=== PATIENT | female | born 1975 | race Hispanic/Latino ===

== ENCOUNTER 2017-03-22 22:06 | Emergency (ER) | payer MEDICARE, MEDICAID ==
[~2017-03-22] VITALS: Ht 172.7 cm; Wt 98.9 kg
[2017-03-22 22:29] VITALS: BP 119/80; PULSE 73; O2SAT 100
[2017-03-22 23:29] LABS: BASOPHILS % (AUTO) 0.4 % (0-3); EOSINOPHILS % (AUTO) 7.7 % (0-5); MONOCYTES % (AUTO) 8.2 % (4-12); Mean Corpuscular Hemoglobin 27.5 pg (27.0-35.0); NEUTROPHILS % (AUTO) 47.7 % (40-74); Platelet Count 338 bil/L (150-400)
[2017-03-22 23:52] LABS: Magnesium 2.1 mg/dL (1.6-2.6)
--- NOTE | 2017-03-23 00:45 | ED.REPORT ---
HPI-Abd Pain F 40 and Over Date of Service Mar 23, 2017 ED Provider: Anup Fonseca MD Pt is a 42 year old female with a hx of DM status post gastric bypass 1 month ago presenting to the ED complaining of abdominal pain radiating to her back onset 4 days ago. Associated symptoms include vomiting, streaking in emesis ( onset this morning), headache, and fatigue. Symptoms are exacerbated by eating. Denies fever, chills, SOB, wheezing. Nursing Notes Stated Complaint: STOMACH PAIN & VOMITING X4 DAYS,POST SURGERY Chief Complaint: Female Abdominal Pain Nursing Notes Reviewed: Yes Allergies: Coded Allergies: hydrocodone (Verified Adverse Reaction, Intermediate, Rash,Itching,, ) morphine (Verified Adverse Reaction, Intermediate, Hallucinations, 03/22/17 ) Scheduled PRN oxyCODONE (oxyCODONE) 5 Mg Tablet 5 MG PO Q4H PRN PRN For Pain General Time Seen by MD: 00:19 Chief Complaint Abdominal pain Hx Obtained From: Patient Arrived By: Walk-in Sudden in Onset?: No Onset Occurred: 4 days ago Symptom Duration: Since onset Quality: Painful Severity: Current: Severe Severity: Maximum: Severe Recent Healthcare: No recent doctor visit, No recent hospitalization, Previous surgery Similar Sx Previous: No Past Medical History Past Medical History Reports: Diabetes mellitus Past Surgical History Gastric bypass surgery January 2017 Smoking History Unknown if Ever Smoker Ambulatory Status Independent Review of Systems Constitutional: Reports: Fatigue, Denies: Chills, Fever Respiratory: Denies: Shortness of breath, Wheezing GI: Reports: Abdominal pain, Hematemesis, Nausea, Vomiting Musculoskeletal: Reports: Back pain Complete sys rev & neg: except as marked. Neurologic: Reports: Headache Physical Exam Vital Signs Vital Signs (First) Date Time Temp Pulse Resp B/P Pulse Ox O2 Delivery O2 Flow Rate FiO2 03/22/17 22:29 36.9 73 119/80 100 Room Air 03/23/17 05:12 16 Initial VS: Reviewed, Vital signs normal Head / Eyes: Atraumatic, Normocephalic, PERRL ENT: Mucous membranes moist, Conjunctiva normal, No scleral icterus Extremities: Vascular intact, Neuro intact, No swelling, No tenderness Skin: Warm, Dry, No cyanosis Neurologic: Alert, Oriented, Nonfocal Psychiatric: Mood/affect normal, Behavior normal, Normal thought content General/Constitutional: Awake Distress / Hydration: Positive: Distress moderate Lips dry, appears dehydrated Respiratory / Chest: Breath sounds NL, Breath sounds = bilat, No respiratory distress, No rales, No rhonchi, No wheezing, No stridor Cardiovascular: Heart rate NL, Regular rhythm, Heart sounds NL, Peripheral circulation NL Abdomen: Atraumatic Tender upper abdomen Interpretation & Diagnostics Lab Results Interpretation Result Diagram: 03/22/17 2322 03/22/17 2322 Test 03/22/17 23:22 03/23/17 01:18 White Blood Count 8.2th/mm3 (3.8-10.1) Red Blood Count 4.72mil/mm3 (3.90-5.20) Hemoglobin 13.0g/dL (12.0-15.6) Hematocrit 40.1% (35.0-46.0) Mean Corpuscular Volume 85.0fL (81-100) Mean Corpuscular Hemoglobin 27.5pg (27.0-35.0) Mean Corpuscular Hemoglobin Concent 32.4% (32.0-37.0) Red Cell Distribution Width 14.1% (12.3-15.4) Platelet Count 338bil/L (150-400) Neutrophils (%) (Auto) 47.7% (40-74) Lymphocytes (%) (Auto) 35.9% (14-46) Monocytes (%) (Auto) 8.2% (4-12) Eosinophils (%) (Auto) 7.7% (0-5) Basophils (%) (Auto) 0.4% (0-3) Sodium Level 142mEq/L (134-144) Potassium Level 3.7mEq/L (3.5-5.2) Chloride Level 104mEq/L (97-108) Carbon Dioxide Level 24mmol/L (18-29) Blood Urea Nitrogen 14mg/dL (6-24) Creatinine 0.63mg/dL (0.57-1.00) Estimat Glomerular Filtration Rate 148mL/min (>59) Glucose Level 127mg/dL (60-99) Calcium Level 9.9mg/dL (8.5-10.1) Magnesium Level 2.1mg/dL (1.6-2.6) Total Bilirubin 0.5mg/dL (0.0-1.2) Aspartate Amino Transf (AST/SGOT) 49U/L (0-50) Alanine Aminotransferase (ALT/SGPT) 72U/L (0-32) Alkaline Phosphatase 101U/L (25-150) Total Protein 7.9g/dL (6.4-8.4) Albumin 4.7g/dL (3.4-5.0) Lipase 38U/L (13-60) Hold Lafleur Top Tube Received (Received) Hold Urine Received (Received) Lab values outside NL range: no clinical significance. CT Abd / Pelvis Interpretation CONCLUSION: Fatty liver. Status post appendectomy. Status post gastric bypass surgery. This report was transmitted to the emergency room at 03/23/2017 - 2:59:50 AM PDT. Study type: Abdominal CT IV contrast Interpretation / Wet Read by: Interpret - Radiologist Re-Eval/Medical Decision Med Decision/Clinical Course 42-year-old female who has vomiting and pain with eating one month after gastric bypass. Labs are normal. CT scan of the abdomen with IV and oral contrast is normal. The case was discussed with , on-call surgeon for Dr. Tam. He stated that strictures are common at about this time. They would like to see her in clinic for endoscopy in the next couple of days. Clear liquids. Oxycodone 5 mg every 4 hours as needed for severe pain, #10 prescription written. She has Zofran at home. Re-Evaluation/Progress : Time of Eval: 04:14 Patient Status: Condition improved Re-Evaluation/Progress Note: Informed of CT results. She first noticed the vomiting and pain, then the bleeding. Consultation : Consulted With: Surgeon Call Returned at: 04:27 Note: Consultation with Dr. Mcneil, bariatric surgeon from [facility]. Sometimes people get a stricture 3 or 4 weeks after the bypass surgery which can sometimes be visualized on a CT and sometimes cannot. Discussed plan for discharge and follow up in the clinic for an endoscopy. Counseled Regarding: Diagnosis, Lab results, Need for follow-up, When/why to return to ED Discharge & Departure Primary Impression: Vomiting Vomiting type: unspecified Vomiting Intractability: non-intractable Nausea presence: with nausea Qualified Code: R11.2 - Nausea with vomiting, unspecified Additional Impression: Status post gastric bypass for obesity Disposition: Home Discharge Condition All VS Reviewed: Yes Condition: Improved Patient Instructions: Acute Nausea and Vomiting (ED) Additional Instructions: Clear liquids only. Oxycodone 5 mg every 4-6 hours as needed for pain, #10 prescription written. Zofran as needed. Follow-up in the next day or 2 at the clinic for possible endoscopy to further delineate this problem. Referrals: OTHER,PHYSICIAN (PCP) Scribe Attestation Portions of this note were transcribed by Lubna Loredo. I, Dr. Fonseca personally performed the history, physical exam and medical decision-making; I reviewed and confirmed the accuracy of the information in the transcribed note. Signed by: Iraj Vang, 03/23/2017. Anup Fonseca MD Mar 23, 2017 00:45 LUBNA LOREDO Mar 23, 2017 00:55
[2017-03-23] MEDS ORDERED: 0.9% Sodium Chloride 1,000 ML IV ONE (00:46)
[2017-03-23] MEDS ORDERED: Iohexol 300 mg/mL 30 mL Inj PO ONE (00:50)
[2017-03-23] MEDS ORDERED: Ondansetron 2 mg/mL 2 mL Inj IVPUSH PRN (00:50)
[2017-03-23] MEDS: HYDROmorphone 0.5 mg/0.5 mL iSecure Syringe IVPUSH PRN ×2 (01:00→04:40)
[2017-03-23] MEDS ORDERED: OXYC5TAB72 PO (04:39)
[2017-03-23 05:12] VITALS: BP 119/83; PULSE 58; RESP 16; O2SAT 98
--- NOTE | 2017-03-23 07:55 | DRSVH ---
PROCEDURE: CT ABDOMEN AND PELVIS WITH CONTRAST ([id number]) INDICATIONS: abd pain sp/p gastric bypass TECHNIQUE: After the administration of oral and intravenous contrast, 5 mm thick sections acquired from the diap hragms to the symphysis. 5 mm thick coronal and sagittal reformats were performed. For radiation do se reduction, the following was used: automated exposure control, adjustment of mA and/or kV accordi ng to patient size. COMPARISON: None. FINDINGS: Image quality: Excellent. ABDOMEN: Lung bases: Lung bases are clear. Heart size is normal. Solid organs: Fatty infiltration of the liver. No hepatic masses. The gallbladder pancreas, spleen, a drenal glands and kidneys are normal. Peritoneum and bowel: Postoperative changes of a Henrik-en-Y gastric bypass. There is possible wall thi ckening in the distal pancreatic/biliary limb. No obstruction or perforation. The colon is normal. Th e appendix is not identified and likely surgically absent. Nodes and vessels: No retroperitoneal or mesenteric adenopathy. Aorta and inferior vena cava are no rmal in caliber. Miscellaneous: No ventral hernias. PELVIS: Genitourinary: Bladder wall thickness is normal. Miscellaneous: No inguinal hernias or adenopathy. Bones: No suspicious bony lesions. No vertebral body compression fractures. IMPRESSION: 1. Postoperative changes of Henrik-en-Y gastric bypass. Possible wall thickening in the pancreatic/bili freedom limb may represent inflammation. 2. Fatty infiltration of the liver. 3. There are no discrepancies with the preliminary report. Dictated by: Domenic Merrill M.D. on 03/23/2017 at 7:49 Approved by: Domenci Merrill M.D. on 03/23/2017 at 7:54
== END 2017-03-23 05:10 | disposition home or self-care (01) ==
LOC: SED 22:06
DX: R11.2 Nausea with vomiting, unspecified (principal); Z98.84 Bariatric surgery status; R10.9 Unspecified abdominal pain; E11.9 Type 2 diabetes mellitus without complications; Z79.891 Long term (current) use of opiate analgesic; Z88.5 Allergy status to narcotic agent
CPT/HCPCS: 36415; 74177; 80053; 81025; 83690; 83735; 85025; 96361; 96374; 96375; 99285; J1170; J2405; J7030; Q9967